=== PATIENT | female | born 1970 | race Caucasian/White ===

== ENCOUNTER 2018-09-30 10:25 | Inpatient (IN) | payer OTHER ==
[2018-09-30 11:13] VITALS: BMI 31.5
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
[2018-09-30] MEDS ORDERED: MAGNESIUM CITRATE 300 ML BOTTLE PO PRN (12:54)
[2018-09-30] MEDS ORDERED: BISMUTH SUBSALICYLATE 262 MG/15 ML BTL PO PRN (12:54)
[2018-09-30] MEDS ORDERED: MAGNESIUM HYDROX 2400MG/30ML ORAL SUSPENSION 30 ML CUP PO PRN (12:54)
[2018-09-30] MEDS ORDERED: ACETAMINOPHEN 325 MG TABLET (FP) PO PRN ×2 (12:54)
[2018-09-30] MEDS ORDERED: MAG HYDROX/AL HYDROX/SIMETH 30 ML UNIT-DOSE CUP PO PRN (12:54)
[2018-09-30] MEDS ORDERED: MENTHOL/PHENOL 1 EACH UD MM PRN (12:54)
[2018-09-30] MEDS ORDERED: METHADONE HCL 10 MG TABLET (FOR DETOX USE ONLY) PO ONE (12:56)
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
[2018-09-30] MEDS: QUEtiapine FUMARATE 100 MG TABLET (FP) PO SCH (22:43)
[2018-09-30] MEDS: THIAMINE HCL 100 MG TABLET (FP) PO SCH (22:44)
[2018-09-30] MEDS: hydrOXYzine PAMOATE 25 MG CAPSULE (FP) PO PRN (22:44)
[2018-10-01] MEDS ORDERED: METHADONE HCL 10 MG TABLET (FOR DETOX USE ONLY) PO ONE (10:00)
[2018-10-01] MEDS: QUEtiapine FUMARATE 50 MG TABLET PO SCH (10:12)
[2018-10-01] MEDS: PRENATAL VITAMINS W/ FOLIC ACID TABLET (FP) PO SCH (10:12)
[2018-10-01 10:52] LABS: ALBUMIN 3.3 g/dl (3.4-5.0); BILIRUBIN,TOTAL 0.4 mg/dL (0.2-1); CALCIUM 8.9 mg/dL (8.5-10.1); CREATININE 0.8 mg/dL (0.55-1.3); POTASSIUM 4.3 mmol/L (3.5-5.1); TOT PROT 6.2 g/dl (6.4-8.2)
[2018-10-01 10:54] LABS: HEMATOCRIT 33.2 % (32.4-45.2); HEMOGLOBIN 11.2 GM/dL (10.7-15.3); MCH 30.7 pg (25.7-33.7); MCHC 33.7 g/dl (32.0-36.0); MEAN CELL VOLUME 91.3 fl (80-96); MEAN PLT VOLUME 8.7 fl (7.5-11.1); PLATELET COUNT 284 K/MM3 (134-434); RBC 3.63 M/mm3 (3.60-5.2); RDW 13.6 % (11.6-15.6); WHITE BLOOD COUNT 6.5 K/mm3 (4.0-10.0)
[2018-10-01] MEDS ORDERED: PNEUMOC 13-VAL CONJ-DIP CRM/PF 0.5 ML DISP.SYRIN IM ONE (12:00)
[2018-10-01] MEDS ORDERED: PNEUMOCOCCAL 23 VACCINE 0.5 ML VIAL IM ONE (12:00)
--- NOTE | 2018-10-01 12:26 | PN ---
BHS COWS - Scale Resting Pulse: 0= [place] 80 or Below Sweatin=Flushed/Facial Moisture Restless Observation: 1= Difficult to Sit Still Pupil Size: 0= Normal to Room Light Bone or Joint Aches: 2= Severe Diffuse Aches Runny Nose/ Eye Tearin= Nasal Congestion GI Upset > 30mins: 1= Stomach Cramp Tremor Observation of Outstretched Hands: 2= Slight Tremor Visible Yawning Observation: 2= >3x During Session Anxiety or Irritability: 2=Irritable/Anxious Goose Flesh Skin: 0=Smooth Skin COWS Score: 13 BHS Progress Note (SOAP) Subjective: agitation anxiety sweats body aches Objective: 10/01/18 12:25 Vital Signs Temperature 97.9 F 10/01/18 10:35 Pulse Rate 69 10/01/18 10:35 Respiratory Rate 18 10/01/18 10:35 Blood Pressure 106/61 10/01/18 10:35 O2 Sat by Pulse Oximetry (%) Laboratory Tests 09/30/18 10/01/18 10/01/18 12:21 07:00 07:00 WBC 6.5 RBC 3.63 Hgb 11.2 Hct 33.2 MCV 91.3 MCH 30.7 MCHC 33.7 RDW 13.6 Plt Count 284 MPV 8.7 Sodium 144 Potassium 4.3 Chloride 109 H Carbon Dioxide 30 Anion Gap 5 L BUN 9 Creatinine 0.8 Est GFR (CKD-EPI)AfAm 101.04 Est GFR (CKD-EPI)NonAf 87.18 Random Glucose 91 Calcium 8.9 Total Bilirubin 0.4 AST 16 ALT 27 Alkaline Phosphatase 49 Total Protein 6.2 L Albumin 3.3 L POC Urine HCG, Qual Negative labs noted aaox3 ambulating no acute distress Assessment: 10/01/18 12:25 withdrawal sx Plan: continue detox increase fluids
--- NOTE | 2018-10-01 13:11 | EKG ---
Test Reason : Blood Pressure : / mmHG Vent. Rate : 066 BPM Atrial Rate : 066 BPM P-R Int : 148 ms QRS Dur : 092 ms QT Int : 390 ms P-R-T Axes : 056 027 037 degrees QTc Int : 408 ms NORMAL SINUS RHYTHM NORMAL ECG NO PREVIOUS ECGS AVAILABLE Confirmed by LYNNE DE LEÓN MD ([id number]) on 10/01/2018 1:11:33 PM Referred By: Confirmed By:LYNNE DE LEÓN MD
[2018-10-01] MEDS: hydrOXYzine PAMOATE 25 MG CAPSULE (FP) PO PRN (20:35)
[2018-10-01] MEDS: QUEtiapine FUMARATE 100 MG TABLET (FP) PO SCH (22:27)
[2018-10-01] MEDS: THIAMINE HCL 100 MG TABLET (FP) PO SCH (22:27)
[2018-10-01] MEDS: METHOCARBAMOL 500 MG TABLET PO PRN (22:28)
[2018-10-01] MEDS: MELATONIN 5 MG TABLETS PO PRN (22:28)
[2018-10-02] MEDS: cloNIDine HCL 0.1 MG TABLET PO PRN ×3 (05:23→18:17)
[2018-10-02] MEDS: hydrOXYzine PAMOATE 25 MG CAPSULE (FP) PO PRN ×3 (05:23→22:13)
[2018-10-02] MEDS: METHOCARBAMOL 500 MG TABLET PO PRN ×3 (05:50→22:14)
[2018-10-02] MEDS ORDERED: METHADONE HCL 10 MG TABLET (FOR DETOX USE ONLY) PO ONE (10:00)
[2018-10-02] MEDS: PRENATAL VITAMINS W/ FOLIC ACID TABLET (FP) PO SCH (10:26)
[2018-10-02] MEDS: QUEtiapine FUMARATE 50 MG TABLET PO SCH (10:27)
[2018-10-02] MEDS: NICOTINE 21 MG/24 HOURS TOPICAL PATCH TD SCH (11:52)
--- NOTE | 2018-10-02 12:38 | PN ---
S COWS - Scale Resting Pulse: 0= [place] 80 or Below Sweatin= Chills/Flushing Restless Observation: 1= Difficult to Sit Still Pupil Size: 0= Normal to Room Light Bone or Joint Aches: 4=Acute Joint/Muscle Pain Runny Nose/ Eye Tearin= None GI Upset > 30mins: 0= None Tremor Observation of Outstretched Hands: 2= Slight Tremor Visible Yawning Observation: 1= 1-2x During Session Anxiety or Irritability: 2=Irritable/Anxious Goose Flesh Skin: 0=Smooth Skin COWS Score: 11 S Progress Note (SOAP) Subjective: c/o anxiety/irritability, tremors, chills, and interrupted sleep. Objective: 10/02/18 12:37 Vital Signs 10/02/18 10/02/18 06:00 09:22 Temperature 98.1 F 98.3 F Pulse Rate 81 79 Respiratory 18 18 Rate Blood Pressure 127/71 125/72 Lab Results WBC 6.5 K/mm3 (4.0-10.0) 10/01/18 07:00 RBC 3.63 M/mm3 (3.60-5.2) 10/01/18 07:00 Hgb 11.2 GM/dL (10.7-15.3) 10/01/18 07:00 Hct 33.2 % (32.4-45.2) 10/01/18 07:00 MCV 91.3 fl (80-96) 10/01/18 07:00 MCHC 33.7 g/dl (32.0-36.0) 10/01/18 07:00 RDW 13.6 % (11.6-15.6) 10/01/18 07:00 Plt Count 284 K/MM3 (134-434) 10/01/18 07:00 Sodium 144 mmol/L (136-145) 10/01/18 07:00 Potassium 4.3 mmol/L (3.5-5.1) 10/01/18 07:00 Chloride 109 mmol/L (98-107) H 10/01/18 07:00 Carbon Dioxide 30 mmol/L (21-32) 10/01/18 07:00 Anion Gap 5 MMOL/L (8-16) L 10/01/18 07:00 BUN 9 mg/dL (7-18) 10/01/18 07:00 Creatinine 0.8 mg/dL (0.55-1.3) 10/01/18 07:00 Random Glucose 91 mg/dL (74-106) 10/01/18 07:00 Calcium 8.9 mg/dL (8.5-10.1) 10/01/18 07:00 Labs noted. Assessment: 10/02/18 12:37 AOX3, in no acute distress. full rom, ambulating in the unit withdrawal symptoms. Plan: Continue detox increase fluids.
[2018-10-02] MEDS: IBUPROFEN 400 MG TABLET (FP) PO PRN (14:03)
[2018-10-02] MEDS: THIAMINE HCL 100 MG TABLET (FP) PO SCH (22:13)
[2018-10-02] MEDS: QUEtiapine FUMARATE 100 MG TABLET (FP) PO SCH (22:13)
[2018-10-02] MEDS: NICOTINE POLACRILEX 2 MG GUM BUC PRN (22:24)
[2018-10-03] MEDS: MELATONIN 5 MG TABLETS PO PRN (01:16)
[2018-10-03] MEDS ORDERED: hydrOXYzine PAMOATE 50 MG CAPSULE (FP) PO ONE (02:09)
[2018-10-03] MEDS: hydrOXYzine PAMOATE 25 MG CAPSULE (FP) PO PRN ×3 (06:27→17:58)
[2018-10-03] MEDS: IBUPROFEN 400 MG TABLET (FP) PO PRN ×2 (08:53→17:59)
[2018-10-03] MEDS ORDERED: METHADONE HCL 10 MG TABLET (FOR DETOX USE ONLY) PO ONE (10:00)
[2018-10-03] MEDS ORDERED: ALBUTEROL SO4 8 GM HFA INHALER IH PRN (10:05)
[2018-10-03] MEDS: QUEtiapine FUMARATE 50 MG TABLET PO SCH (10:06)
[2018-10-03] MEDS: PRENATAL VITAMINS W/ FOLIC ACID TABLET (FP) PO SCH (10:06)
[2018-10-03] MEDS: NICOTINE 21 MG/24 HOURS TOPICAL PATCH TD SCH (10:06)
[2018-10-03] MEDS: NICOTINE POLACRILEX 2 MG GUM BUC PRN (10:08)
[2018-10-03] MEDS: METHOCARBAMOL 500 MG TABLET PO PRN ×2 (10:37→17:59)
--- NOTE | 2018-10-03 11:09 | PN ---
[facility] Progress Note Note: Patient reports sleeping poorly despite taking Seroquel 100 mg at bedtime. Requests to increase Seroquel dosage to 200 mg which she was on prior to her current admission
[2018-10-03] MEDS: LIDOCAINE 5% TOPICAL PATCH TP SCH (11:19)
[2018-10-03] MEDS ORDERED: METHADONE HCL 5 MG TABLET (FOR DETOX USE ONLY) PO ONE (17:15)
--- NOTE | 2018-10-03 17:15 | PN ---
BHS COWS - Scale Resting Pulse: 0= OR 80 or Below Sweatin= Chills/Flushing Restless Observation: 3= Extraneous Movement Pupil Size: 0= Normal to Room Light Bone or Joint Aches: 2= Severe Diffuse Aches Runny Nose/ Eye Tearin= Runny Nose/Eyes GI Upset > 30mins: 2= Nausea/Diarrhea Tremor Observation of Outstretched Hands: 2= Slight Tremor Visible Yawning Observation: 0= None Anxiety or Irritability: 2=Irritable/Anxious Goose Flesh Skin: 0=Smooth Skin COWS Score: 14 BHS Progress Note (SOAP) Subjective: Goose bumps, sweating, chills, anxious, body ache. Patient requested to have hydroxyzine increase as she is very anxious. Objective: 10/03/18 17:11 Last Vital Signs Temp Pulse Resp BP Pulse Ox 99.3 F 73 18 103/64 10/03/18 17:10 10/03/18 17:10 10/03/18 17:10 10/03/18 17:10 Laboratory Tests 09/30/18 10/01/18 10/01/18 12:21 07:00 07:00 WBC 6.5 RBC 3.63 Hgb 11.2 Hct 33.2 MCV 91.3 MCH 30.7 MCHC 33.7 RDW 13.6 Plt Count 284 MPV 8.7 Sodium 144 Potassium 4.3 Chloride 109 H Carbon Dioxide 30 Anion Gap 5 L BUN 9 Creatinine 0.8 Est GFR (CKD-EPI)AfAm 101.04 Est GFR (CKD-EPI)NonAf 87.18 Random Glucose 91 Calcium 8.9 Total Bilirubin 0.4 AST 16 ALT 27 Alkaline Phosphatase 49 Total Protein 6.2 L Albumin 3.3 L POC Urine HCG, Qual Negative RPR Titer HIV 1&2 Antibody Screen HIV P24 Antigen 10/01/18 10/01/18 07:00 07:00 WBC RBC Hgb Hct MCV MCH MCHC RDW Plt Count MPV Sodium Potassium Chloride Carbon Dioxide Anion Gap BUN Creatinine Est GFR (CKD-EPI)AfAm Est GFR (CKD-EPI)NonAf Random Glucose Calcium Total Bilirubin AST ALT Alkaline Phosphatase Total Protein Albumin POC Urine HCG, Qual RPR Titer Nonreactive HIV 1&2 Antibody Screen Negative HIV P24 Antigen Negative Labs reviewed Assessment: 10/03/18 17:12 Withdrawal symptoms Plan: Continue detox Encouraged PO water hydration Hydroxyzine increased to 50mg PO q6hr prn (patient's request) Methadone adjusted due to increased withdrawal symptoms as follows: Methadone 5mg PO x 1 dose for total of 15mg today Methadone 10mg tomorrow and 5mg on Thursday
[2018-10-03] MEDS: QUEtiapine FUMARATE 200 MG TABLET PO SCH (22:35)
[2018-10-03] MEDS: THIAMINE HCL 100 MG TABLET (FP) PO SCH (22:35)
[2018-10-03] MEDS: LIDOCAINE PATCH REMOVAL MC SCH (22:36)
[2018-10-04] MEDS: IBUPROFEN 400 MG TABLET (FP) PO PRN ×2 (00:01→22:12)
[2018-10-04] MEDS: METHOCARBAMOL 500 MG TABLET PO PRN ×4 (00:01→18:32)
[2018-10-04] MEDS: hydrOXYzine PAMOATE 25 MG CAPSULE (FP) PO PRN ×4 (00:03→18:32)
[2018-10-04] MEDS: MELATONIN 5 MG TABLETS PO PRN ×2 (02:44→22:14)
[2018-10-04] MEDS ORDERED: METHADONE HCL 10 MG TABLET (FOR DETOX USE ONLY) PO ONE (06:00)
[2018-10-04] MEDS ORDERED: METHADONE HCL 5 MG TABLET (FOR DETOX USE ONLY) PO ONE (06:00)
[2018-10-04] MEDS: diazePAM 5 MG TABLET PO PRN ×4 (09:04→21:08)
[2018-10-04] MEDS: NICOTINE 21 MG/24 HOURS TOPICAL PATCH TD SCH (10:23)
[2018-10-04] MEDS: LIDOCAINE 5% TOPICAL PATCH TP SCH (10:23)
[2018-10-04] MEDS: QUEtiapine FUMARATE 50 MG TABLET PO SCH (10:24)
[2018-10-04] MEDS: PRENATAL VITAMINS W/ FOLIC ACID TABLET (FP) PO SCH (10:24)
--- NOTE | 2018-10-04 10:43 | PN ---
BHS COWS - Scale Resting Pulse: 1= [place] 81-100 Sweatin= Chills/Flushing Restless Observation: 1= Difficult to Sit Still Pupil Size: 0= Normal to Room Light Bone or Joint Aches: 1= Mild Discomfort Runny Nose/ Eye Tearin= None GI Upset > 30mins: 0= None Tremor Observation of Outstretched Hands: 1= Tremor [place], Not Seen Yawning Observation: 0= None Anxiety or Irritability: 2=Irritable/Anxious Goose Flesh Skin: 0=Smooth Skin COWS Score: 7 BHS Progress Note (SOAP) Subjective: anxiety sweats irritable Objective: 10/04/18 10:41 Vital Signs Temperature 97.9 F 10/04/18 09:19 Pulse Rate 82 10/04/18 09:19 Respiratory Rate 18 10/04/18 09:19 Blood Pressure 104/72 10/04/18 09:19 O2 Sat by Pulse Oximetry (%) aaox3 ambulating no acute distress Assessment: 10/04/18 10:42 withdrawal sx Plan: continue detox valium 10mg prn until tomorrow.
[2018-10-04] MEDS: QUEtiapine FUMARATE 200 MG TABLET PO SCH (22:11)
[2018-10-04] MEDS: LIDOCAINE PATCH REMOVAL MC SCH (22:14)
[2018-10-04] MEDS: THIAMINE HCL 100 MG TABLET (FP) PO SCH (22:14)
[2018-10-05] MEDS: hydrOXYzine PAMOATE 25 MG CAPSULE (FP) PO PRN ×2 (00:56→09:47)
[2018-10-05] MEDS: METHOCARBAMOL 500 MG TABLET PO PRN (00:56)
[2018-10-05] MEDS: diazePAM 5 MG TABLET PO PRN ×2 (01:32→06:04)
[2018-10-05] MEDS: NICOTINE POLACRILEX 2 MG GUM BUC PRN (01:36)
[2018-10-05] MEDS ORDERED: METHADONE HCL 5 MG TABLET (FOR DETOX USE ONLY) PO ONE (06:00)
--- NOTE | 2018-10-05 09:20 | DS ---
[facility] Detox Discharge Summary Admission Date: 09/30/18 Discharge Date: 10/05/18 - History Present History: Cannabis Dependence, Cocaine Dependence, Opioid Dependence, Sedative Dependence - Physical Exam Results Vital Signs: Vital Signs Temperature 96.6 F L 10/05/18 07:21 Pulse Rate 85 10/05/18 07:21 Respiratory Rate 18 10/05/18 07:21 Blood Pressure 139/79 10/05/18 07:21 O2 Sat by Pulse Oximetry (%) - Treatment Hospital Course: Detox Protocol Followed, Detoxed Safely, Responded well, Discharged Condition Good, Rehab Referral Accepted - Medication Discharge Medications: Ambulatory Orders Bupropion HCl 100 mg PO TID 09/30/18 Quetiapine Fumarate [Seroquel -] 50 mg PO BID 09/30/18 Quetiapine Fumarate [Seroquel -] 200 mg PO HS 09/30/18 hydrOXYzine PAMOATE [Vistaril -] 50 mg PO TID 09/30/18 - Diagnosis (1) Opioid dependence with withdrawal Current Visit: Yes Status: Chronic (2) Sedative hypnotic or anxiolytic dependence Current Visit: Yes Status: Chronic (3) Cannabis dependence Current Visit: Yes Status: Chronic (4) Cocaine dependence Current Visit: Yes Status: Chronic Qualifiers: Substance use status: uncomplicated Qualified Code(s): F14.20 - Cocaine dependence, uncomplicated (5) Nicotine dependence Current Visit: Yes Status: Chronic Qualifiers: Nicotine product type: cigarettes Substance use status: uncomplicated Qualified Code(s): F17.210 - Nicotine dependence, cigarettes, uncomplicated (6) Drug-induced psychotic disorder with hallucinations Current Visit: No Status: Suspected - AMA Did Patient Leave Against Medical Advice: No (referred to [facility])
[2018-10-05 09:39] VITALS: BP 115/69; PULSE 93; TEMP 98.1
[2018-10-05] MEDS: PRENATAL VITAMINS W/ FOLIC ACID TABLET (FP) PO SCH (09:44)
[2018-10-05] MEDS: QUEtiapine FUMARATE 50 MG TABLET PO SCH (09:44)
--- NOTE | 2018-10-05 10:04 | PN ---
[facility] Progress Note Note: Patient is scheduled for discharge today. Scripts for 30 days supply of medications(Seroquel 50 mg/day & 200 mg/hs, Wellbutrin XL 150 mg.day) are electronically transmitted to [facility] at [address] [place] [address]
== END 2018-10-05 10:40 | disposition home or self-care (01) | DRG 773 ==
LOC: YASAS 10:25 → Y6N 13:21
PROVIDERS: ADMIT Surgery; ATTEND Surgery
PROC: HZ2ZZZZ Detoxification Services for Substance Abuse Treatment (ICD-10-PCS; principal; 2018-09-30)
DX: F11.23 Opioid dependence with withdrawal (principal); F13.20 Sedative, hypnotic or anxiolytic dependence, uncomplicated; F14.20 Cocaine dependence, uncomplicated; F12.20 Cannabis dependence, uncomplicated; F17.210 Nicotine dependence, cigarettes, uncomplicated; F19.951 Other psychoactive substance use, unspecified with psychoactive substance-induced psychotic disorder with hallucinations
CPT/HCPCS: 36415; 80053; 81025; 85027; 86593; 87389; 90732; 93005; 93010; G0009; J0735

== ENCOUNTER 2019-02-09 13:05 | Inpatient (IN) | payer OTHER ==
[2019-02-09 14:37] VITALS: BMI 29.9
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
[2019-02-09] MEDS ORDERED: MAG HYDROX/AL HYDROX/SIMETH 30 ML UNIT-DOSE CUP PO PRN (16:05)
[2019-02-09] MEDS ORDERED: MAGNESIUM CITRATE 300 ML BOTTLE PO PRN (16:05)
[2019-02-09] MEDS ORDERED: ACETAMINOPHEN 325 MG TABLET (FP) PO PRN ×2 (16:05)
[2019-02-09] MEDS ORDERED: BISMUTH SUBSALICYLATE 524 MG/30 ML UD PO PRN (16:05)
[2019-02-09] MEDS ORDERED: MENTHOL/PHENOL 1 EACH UD MM PRN (16:05)
[2019-02-09] MEDS ORDERED: MAGNESIUM HYDROX 2400MG/30ML ORAL SUSPENSION 30 ML CUP PO PRN (16:05)
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
[2019-02-09] MEDS ORDERED: AMMONIUM LACTATE 12% LOTION 225 GM BOTTLE TP PRN (16:10)
[2019-02-09] MEDS ORDERED: ALBUTEROL SO4 2.5/IPRATROPIUM 0.5 INH SOL 3 ML VIAL.NEB. NEB PRN (16:12)
[2019-02-09] MEDS ORDERED: METHADONE HCL 10 MG TABLET (FOR DETOX USE ONLY) PO ONE (16:30)
[2019-02-09] MEDS: hydrOXYzine PAMOATE 25 MG CAPSULE (FP) PO PRN (17:08)
[2019-02-09] MEDS: THIAMINE HCL 100 MG TABLET (FP) PO SCH (21:33)
[2019-02-09] MEDS: CROMOLYN SODIUM 4% OPHTH DROPS 10 ML BOTTLE OD SCH (21:33)
[2019-02-09] MEDS: METHOCARBAMOL 500 MG TABLET PO PRN (21:34)
[2019-02-09] MEDS ORDERED: MELATONIN 5 MG TABLETS PO PRN (22:00)
[2019-02-10] MEDS: METHOCARBAMOL 500 MG TABLET PO PRN (04:04)
[2019-02-10] MEDS: hydrOXYzine PAMOATE 25 MG CAPSULE (FP) PO PRN (04:04)
[2019-02-10] MEDS: CROMOLYN SODIUM 4% OPHTH DROPS 10 ML BOTTLE OD SCH ×3 (07:46→22:42)
[2019-02-10] MEDS ORDERED: METHADONE HCL 5 MG TABLET (FOR DETOX USE ONLY) ONE (09:15)
[2019-02-10] MEDS ORDERED: METHADONE HCL 10 MG TABLET (FOR DETOX USE ONLY) ONE (09:15)
[2019-02-10] MEDS ORDERED: METHADONE (DETOX) 20 MG, METHADONE (DETOX) 5 MG PO ONE (10:00)
[2019-02-10 10:15] LABS: HEMATOCRIT 33.7 % (32.4-45.2); HEMOGLOBIN 11.1 GM/dL (10.7-15.3); MCH 29.8 pg (25.7-33.7); MCHC 32.8 g/dl (32.0-36.0); MEAN CELL VOLUME 90.8 fl (80-96); MEAN PLT VOLUME 9.8 fl (7.5-11.1); PLATELET COUNT 211 K/MM3 (134-434); RBC 3.71 M/mm3 (3.60-5.2); RDW 14.9 % (11.6-15.6); WHITE BLOOD COUNT 5.8 K/mm3 (4.0-10.0)
[2019-02-10] MEDS: NICOTINE 21 MG/24 HOURS TOPICAL PATCH TD SCH (10:22)
[2019-02-10] MEDS: PRENATAL VITAMINS W/ FOLIC ACID TABLET (FP) PO SCH (10:22)
[2019-02-10 10:35] LABS: ALBUMIN 3.1 g/dl (3.4-5.0); BILIRUBIN,TOTAL 0.2 mg/dL (0.2-1); BLOOD UREA NITROGEN 8.1 mg/dL (7-18); CALCIUM 8.6 mg/dL (8.5-10.1); CREATININE 0.7 mg/dL (0.55-1.3); POTASSIUM 4.1 mmol/L (3.5-5.1); TOT PROT 5.9 g/dl (6.4-8.2)
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
[2019-02-10 11:09] LABS: RPR NONREACTIVE (NONREACTIVE)
[2019-02-10] MEDS: SERTRALINE HCL 50 MG TABLET (FP) PO SCH (11:39)
[2019-02-10] MEDS: hydrOXYzine PAMOATE 50 MG CAPSULE (FP) PO PRN ×3 (11:40→22:14)
--- NOTE | 2019-02-10 13:35 | PN ---
BHS COWS - Scale Resting Pulse: 0= [place] 80 or Below Sweatin= Chills/Flushing Restless Observation: 1= Difficult to Sit Still Pupil Size: 0= Normal to Room Light Bone or Joint Aches: 2= Severe Diffuse Aches Runny Nose/ Eye Tearin= Nasal Congestion GI Upset > 30mins: 0= None Tremor Observation of Outstretched Hands: 2= Slight Tremor Visible Yawning Observation: 2= >3x During Session Anxiety or Irritability: 2=Irritable/Anxious Goose Flesh Skin: 3=Piloerection COWS Score: 14 BHS Progress Note (SOAP) Subjective: chills sweats interrupted sleep body aches agitation Objective: 02/10/19 13:34 Vital Signs Temperature 98.1 F 02/10/19 12:46 Pulse Rate 72 02/10/19 12:46 Respiratory Rate 20 02/10/19 12:46 Blood Pressure 139/77 02/10/19 12:46 O2 Sat by Pulse Oximetry (%) Laboratory Tests 02/10/19 02/10/19 02/10/19 08:10 08:10 08:10 WBC 5.8 RBC 3.71 Hgb 11.1 Hct 33.7 MCV 90.8 MCH 29.8 MCHC 32.8 RDW 14.9 Plt Count 211 D MPV 9.8 D Sodium 142 Potassium 4.1 Chloride 107 Carbon Dioxide 30 Anion Gap 5 L BUN 8.1 Creatinine 0.7 Est GFR (CKD-EPI)AfAm 118.74 Est GFR (CKD-EPI)NonAf 102.45 Random Glucose 86 Calcium 8.6 Total Bilirubin 0.2 AST 7 L ALT 15 Alkaline Phosphatase 54 Total Protein 5.9 L Albumin 3.1 L RPR Titer Nonreactive HIV 1&2 Antibody Screen Negative HIV P24 Antigen Negative labs noted aaox3 ambulating no acute distress Assessment: 02/10/19 13:34 withdrawals Plan: continue detox valium 10mg q4hrs prn x 3 days ordered increase fluids
[2019-02-10] MEDS: diazePAM 5 MG TABLET PO PRN ×3 (14:49→23:18)
[2019-02-10] MEDS: cloNIDine HCL 0.1 MG TABLET PO PRN (14:51)
[2019-02-10] MEDS: ARIPiprazole 10 MG TABLET PO SCH (22:10)
[2019-02-10] MEDS: SUVOREXANT 10 MG TABLET PO PRN (22:11)
[2019-02-10] MEDS: THIAMINE HCL 100 MG TABLET (FP) PO SCH (22:11)
[2019-02-10] MEDS: IBUPROFEN 400 MG TABLET (FP) PO PRN (22:14)
[2019-02-11] MEDS: METHOCARBAMOL 500 MG TABLET PO PRN ×2 (06:12→17:04)
[2019-02-11] MEDS: diazePAM 5 MG TABLET PO PRN ×4 (06:12→22:17)
[2019-02-11] MEDS: hydrOXYzine PAMOATE 50 MG CAPSULE (FP) PO PRN ×2 (06:13→22:14)
[2019-02-11] MEDS: CROMOLYN SODIUM 4% OPHTH DROPS 10 ML BOTTLE OD SCH ×3 (06:17→22:28)
[2019-02-11] MEDS ORDERED: METHADONE HCL 10 MG TABLET (FOR DETOX USE ONLY) PO ONE (10:00)
[2019-02-11] MEDS: NICOTINE 21 MG/24 HOURS TOPICAL PATCH TD SCH (10:54)
[2019-02-11] MEDS: SERTRALINE HCL 50 MG TABLET (FP) PO SCH (10:54)
[2019-02-11] MEDS: PRENATAL VITAMINS W/ FOLIC ACID TABLET (FP) PO SCH (10:54)
[2019-02-11] MEDS: cloNIDine HCL 0.1 MG TABLET PO PRN (10:54)
[2019-02-11] MEDS ORDERED: COLLOIDAL OATMEAL 1 BAR EACH TP ONE (13:39)
--- NOTE | 2019-02-11 13:39 | PN ---
BHS COWS - Scale Resting Pulse: 1= [place] 81-100 Sweatin= Chills/Flushing Restless Observation: 1= Difficult to Sit Still Pupil Size: 0= Normal to Room Light Bone or Joint Aches: 2= Severe Diffuse Aches Runny Nose/ Eye Tearin= Nasal Congestion GI Upset > 30mins: 0= None Tremor Observation of Outstretched Hands: 2= Slight Tremor Visible Yawning Observation: 1= 1-2x During Session Anxiety or Irritability: 1=Feels Anxious/Irritable Goose Flesh Skin: 0=Smooth Skin COWS Score: 10 BHS Progress Note (SOAP) Subjective: sweats shakes rash on my back anxiety Objective: 02/11/19 13:38 Vital Signs Temperature 97.9 F 02/11/19 13:18 Pulse Rate 104 H 02/11/19 13:18 Respiratory Rate 18 02/11/19 13:18 Blood Pressure 143/71 02/11/19 13:18 O2 Sat by Pulse Oximetry (%) Laboratory Tests 02/10/19 02/10/19 02/10/19 08:10 08:10 08:10 WBC 5.8 RBC 3.71 Hgb 11.1 Hct 33.7 MCV 90.8 MCH 29.8 MCHC 32.8 RDW 14.9 Plt Count 211 D MPV 9.8 D Sodium 142 Potassium 4.1 Chloride 107 Carbon Dioxide 30 Anion Gap 5 L BUN 8.1 Creatinine 0.7 Est GFR (CKD-EPI)AfAm 118.74 Est GFR (CKD-EPI)NonAf 102.45 Random Glucose 86 Calcium 8.6 Total Bilirubin 0.2 AST 7 L ALT 15 Alkaline Phosphatase 54 Total Protein 5.9 L Albumin 3.1 L RPR Titer Nonreactive Hep C Ab Diagnostic HIV 1&2 Antibody Screen Negative HIV P24 Antigen Negative 02/10/19 08:10 WBC RBC Hgb Hct MCV MCH MCHC RDW Plt Count MPV Sodium Potassium Chloride Carbon Dioxide Anion Gap BUN Creatinine Est GFR (CKD-EPI)AfAm Est GFR (CKD-EPI)NonAf Random Glucose Calcium Total Bilirubin AST ALT Alkaline Phosphatase Total Protein Albumin RPR Titer Hep C Ab Diagnostic 0.3 HIV 1&2 Antibody Screen HIV P24 Antigen labs noted aaox3 ambulating no acute distress Assessment: 02/11/19 13:39 withdrawal sx Plan: continue detox increase fluids aveeno soap hydrocortizone cream
[2019-02-11] MEDS: HYDROCORTISONE 1% TOPICAL CREAM 30 GM TUBE TP SCH ×2 (14:42→22:27)
[2019-02-11] MEDS: SUVOREXANT 10 MG TABLET PO PRN (22:14)
[2019-02-11] MEDS: ARIPiprazole 10 MG TABLET PO SCH (22:14)
[2019-02-11] MEDS: THIAMINE HCL 100 MG TABLET (FP) PO SCH (22:14)
[2019-02-12] MEDS: diazePAM 5 MG TABLET PO PRN ×4 (02:28→21:46)
[2019-02-12] MEDS: hydrOXYzine PAMOATE 50 MG CAPSULE (FP) PO PRN ×3 (05:48→16:30)
[2019-02-12] MEDS: METHOCARBAMOL 500 MG TABLET PO PRN ×3 (05:48→21:48)
[2019-02-12] MEDS: CROMOLYN SODIUM 4% OPHTH DROPS 10 ML BOTTLE OD SCH ×3 (05:49→22:39)
[2019-02-12] MEDS: HYDROCORTISONE 1% TOPICAL CREAM 30 GM TUBE TP SCH ×3 (05:49→22:39)
[2019-02-12] MEDS ORDERED: METHADONE (DETOX) 10 MG, METHADONE (DETOX) 5 MG PO ONE (10:00)
[2019-02-12] MEDS ORDERED: METHADONE HCL 10 MG TABLET (FOR DETOX USE ONLY) ONE (10:41)
[2019-02-12] MEDS ORDERED: METHADONE HCL 5 MG TABLET (FOR DETOX USE ONLY) ONE (10:41)
[2019-02-12] MEDS: PRENATAL VITAMINS W/ FOLIC ACID TABLET (FP) PO SCH (10:49)
[2019-02-12] MEDS: NICOTINE 21 MG/24 HOURS TOPICAL PATCH TD SCH (10:49)
[2019-02-12] MEDS: SERTRALINE HCL 50 MG TABLET (FP) PO SCH (10:50)
[2019-02-12] MEDS ORDERED: cloNIDine HCL 0.1 MG TABLET PO PRN (11:48)
--- NOTE | 2019-02-12 13:30 | PN ---
BHS COWS - Scale Resting Pulse: 1= [place] 81-100 Sweatin= Chills/Flushing Restless Observation: 1= Difficult to Sit Still Pupil Size: 0= Normal to Room Light Bone or Joint Aches: 2= Severe Diffuse Aches Runny Nose/ Eye Tearin= None GI Upset > 30mins: 0= None Tremor Observation of Outstretched Hands: 1= Tremor [place], Not Seen Yawning Observation: 1= 1-2x During Session Anxiety or Irritability: 1=Feels Anxious/Irritable Goose Flesh Skin: 0=Smooth Skin COWS Score: 8 BHS Progress Note (SOAP) Subjective: anxiety sweats interrupted sleep body aches Objective: 02/12/19 13:29 Vital Signs Temperature 97.1 F L 02/12/19 09:27 Pulse Rate 58 L 02/12/19 09:27 Respiratory Rate 16 02/12/19 09:27 Blood Pressure 113/64 02/12/19 09:27 O2 Sat by Pulse Oximetry (%) Laboratory Tests 02/10/19 02/10/19 02/10/19 08:10 08:10 08:10 WBC 5.8 RBC 3.71 Hgb 11.1 Hct 33.7 MCV 90.8 MCH 29.8 MCHC 32.8 RDW 14.9 Plt Count 211 D MPV 9.8 D Sodium 142 Potassium 4.1 Chloride 107 Carbon Dioxide 30 Anion Gap 5 L BUN 8.1 Creatinine 0.7 Est GFR (CKD-EPI)AfAm 118.74 Est GFR (CKD-EPI)NonAf 102.45 Random Glucose 86 Calcium 8.6 Total Bilirubin 0.2 AST 7 L ALT 15 Alkaline Phosphatase 54 Total Protein 5.9 L Albumin 3.1 L RPR Titer Nonreactive Hep C Ab Diagnostic HIV 1&2 Antibody Screen Negative HIV P24 Antigen Negative 02/10/19 08:10 WBC RBC Hgb Hct MCV MCH MCHC RDW Plt Count MPV Sodium Potassium Chloride Carbon Dioxide Anion Gap BUN Creatinine Est GFR (CKD-EPI)AfAm Est GFR (CKD-EPI)NonAf Random Glucose Calcium Total Bilirubin AST ALT Alkaline Phosphatase Total Protein Albumin RPR Titer Hep C Ab Diagnostic 0.3 HIV 1&2 Antibody Screen HIV P24 Antigen aaox3 ambulating no acute distress Assessment: 02/12/19 13:30 withdrawal sx Plan: continue detox clonidine 0.1 mg daily prn re-ordered with parameters
[2019-02-12] MEDS: THIAMINE HCL 100 MG TABLET (FP) PO SCH (21:43)
[2019-02-12] MEDS: SUVOREXANT 10 MG TABLET PO PRN (21:43)
[2019-02-12] MEDS: ARIPiprazole 10 MG TABLET PO SCH (21:44)
[2019-02-13] MEDS: diazePAM 5 MG TABLET PO PRN (03:25)
[2019-02-13] MEDS: IBUPROFEN 400 MG TABLET (FP) PO PRN (03:28)
[2019-02-13] MEDS: CROMOLYN SODIUM 4% OPHTH DROPS 10 ML BOTTLE OD SCH ×2 (06:39→14:24)
[2019-02-13] MEDS: HYDROCORTISONE 1% TOPICAL CREAM 30 GM TUBE TP SCH ×2 (06:40→14:24)
[2019-02-13] MEDS: hydrOXYzine PAMOATE 50 MG CAPSULE (FP) PO PRN (06:41)
[2019-02-13] MEDS ORDERED: METHADONE HCL 10 MG TABLET (FOR DETOX USE ONLY) PO ONE (10:00)
[2019-02-13] MEDS: PRENATAL VITAMINS W/ FOLIC ACID TABLET (FP) PO SCH (10:29)
[2019-02-13] MEDS: NICOTINE 21 MG/24 HOURS TOPICAL PATCH TD SCH (10:29)
[2019-02-13] MEDS: SERTRALINE HCL 50 MG TABLET (FP) PO SCH (10:29)
[2019-02-13] MEDS: METHOCARBAMOL 500 MG TABLET PO PRN (11:15)
[2019-02-13 13:27] VITALS: BP 107/55; PULSE 76; TEMP 97.9
--- NOTE | 2019-02-13 16:45 | PN ---
BHS COWS - Scale Resting Pulse: 0= [place] 80 or Below Sweatin= No chills or Flushing Restless Observation: 0= Sits Still Pupil Size: 0= Normal to Room Light Bone or Joint Aches: 1= Mild Discomfort Runny Nose/ Eye Tearin= Runny Nose/Eyes GI Upset > 30mins: 1= Stomach Cramp Tremor Observation of Outstretched Hands: 0= None Yawning Observation: 0= None Anxiety or Irritability: 1=Feels Anxious/Irritable Goose Flesh Skin: 0=Smooth Skin COWS Score: 5 BHS Progress Note (SOAP) Subjective: Lots of anxiety, sweating, chills, tremor, interrupted sleep Objective: 02/13/19 16:42 Last Vital Signs Temp Pulse Resp BP Pulse Ox 97.9 F 76 18 107/55 L 02/13/19 13:26 02/13/19 13:26 02/13/19 13:26 02/13/19 13:26 Laboratory Tests 02/10/19 02/10/19 02/10/19 08:10 08:10 08:10 WBC 5.8 RBC 3.71 Hgb 11.1 Hct 33.7 MCV 90.8 MCH 29.8 MCHC 32.8 RDW 14.9 Plt Count 211 D MPV 9.8 D Sodium 142 Potassium 4.1 Chloride 107 Carbon Dioxide 30 Anion Gap 5 L BUN 8.1 Creatinine 0.7 Est GFR (CKD-EPI)AfAm 118.74 Est GFR (CKD-EPI)NonAf 102.45 Random Glucose 86 Calcium 8.6 Total Bilirubin 0.2 AST 7 L ALT 15 Alkaline Phosphatase 54 Total Protein 5.9 L Albumin 3.1 L RPR Titer Nonreactive Hep C Ab Diagnostic HIV 1&2 Antibody Screen Negative HIV P24 Antigen Negative 02/10/19 08:10 WBC RBC Hgb Hct MCV MCH MCHC RDW Plt Count MPV Sodium Potassium Chloride Carbon Dioxide Anion Gap BUN Creatinine Est GFR (CKD-EPI)AfAm Est GFR (CKD-EPI)NonAf Random Glucose Calcium Total Bilirubin AST ALT Alkaline Phosphatase Total Protein Albumin RPR Titer Hep C Ab Diagnostic 0.3 HIV 1&2 Antibody Screen HIV P24 Antigen Labs reviewed Assessment: 02/13/19 16:43 Withdrawal sxs Plan: Continue detox Encouraged PO water intake Patient scheduled for discharge tomorrow
--- NOTE | 2019-02-13 22:30 | DS ---
[facility] Detox Discharge Summary Admission Date: 02/09/19 Discharge Date: 02/13/19 - History Present History: Cannabis Dependence, Cocaine Dependence, Opioid Dependence Additional Comments: DESPITE ATTEMPTS TO ADDRESS PATIENT'S NEEDS / CONCERNS AND DESPITE ENCOURAGEMENT FROM RN AND RN CHRONIC TO REMAIN UNTIL TOMORROW AM TO LEAVE DETOX UNIT, PATIENT INSISTS ON LEAVING DETOX UNIT LATE IN DAY AT UNSAFE TIME AND AGAINST MEDICAL ADVICE. NO APPARENT REASON FOR LEAVING DETOX UNIT AT THIS TIME OFFERED BY PATIENT WHEN ASKED. RISKS OF LEAVING DETOX UNIT AGAINST MEDICAL ADVICE AND PRIOR TO COMPLETION OF DETOX REGIMEN EXPLAINED TO PATIENT. PATIENT ADVISED TO GO IMMEDIATELY TO NEAREST ER SHOULD ANY INTOLERABLE WITHDRAWAL / DETOX SYMPTOMS OCCUR AT ANY TIME. PATIENT VERBALIZED UNDERSTANDING OF RECOMMENDATION. Pertinent Past History: History Of Major Depressive Disorder, History Of Complex Regional Pain Syndrome , Asthma, Anxiety, Nicotine Dependence, History Of Knee Surgery, History of Ankle Surgery, Schizophrenia. - Physical Exam Results Vital Signs: Vital Signs Temperature 97.9 F 02/13/19 13:26 Pulse Rate 76 02/13/19 13:26 Respiratory Rate 18 02/13/19 13:26 Blood Pressure 107/55 L 02/13/19 13:26 O2 Sat by Pulse Oximetry (%) Pertinent Admission Physical Exam Findings: WITHDRAWAL SYMPTOMS. Laboratory Tests 02/10/19 02/10/19 02/10/19 08:10 08:10 08:10 WBC 5.8 RBC 3.71 Hgb 11.1 Hct 33.7 MCV 90.8 MCH 29.8 MCHC 32.8 RDW 14.9 Plt Count 211 D MPV 9.8 D Sodium 142 Potassium 4.1 Chloride 107 Carbon Dioxide 30 Anion Gap 5 L BUN 8.1 Creatinine 0.7 Est GFR (CKD-EPI)AfAm 118.74 Est GFR (CKD-EPI)NonAf 102.45 Random Glucose 86 Calcium 8.6 Total Bilirubin 0.2 AST 7 L ALT 15 Alkaline Phosphatase 54 Total Protein 5.9 L Albumin 3.1 L RPR Titer Nonreactive Hep C Ab Diagnostic HIV 1&2 Antibody Screen Negative HIV P24 Antigen Negative 02/10/19 08:10 WBC RBC Hgb Hct MCV MCH MCHC RDW Plt Count MPV Sodium Potassium Chloride Carbon Dioxide Anion Gap BUN Creatinine Est GFR (CKD-EPI)AfAm Est GFR (CKD-EPI)NonAf Random Glucose Calcium Total Bilirubin AST ALT Alkaline Phosphatase Total Protein Albumin RPR Titer Hep C Ab Diagnostic 0.3 HIV 1&2 Antibody Screen HIV P24 Antigen LABS NOTED. - Medication Discharge Medications: Ambulatory Orders Albuterol Sulfate Inhaler - [Ventolin Hfa Inhaler -] 2 inh PO Q4H PRN 02/09/19 Aripiprazole 10 mg PO HS 02/09/19 Cromolyn Sodium [Crolom] 2 drop OD TID 02/09/19 Sertraline HCl [Zoloft] 100 mg PO DAILY 02/09/19 - Diagnosis (1) Opioid dependence with withdrawal Status: Acute (2) Asthma Status: Chronic Qualifiers: Asthma severity: unspecified severity Asthma persistence: unspecified Asthma complication type: uncomplicated Qualified Code(s): J45.909 - Unspecified asthma, uncomplicated (3) Cannabis dependence Status: Chronic (4) Nicotine dependence Status: Chronic Qualifiers: Nicotine product type: cigarettes Substance use status: uncomplicated Qualified Code(s): F17.210 - Nicotine dependence, cigarettes, uncomplicated (5) Drug-induced psychotic disorder with hallucinations Status: Suspected (6) Substance induced mood disorder Status: Acute (7) Substance-induced sleep disorder Status: Acute (8) Complex regional pain syndrome Status: Chronic (9) Schizophrenia Status: Chronic Qualifiers: Schizophrenia type: unspecified Qualified Code(s): F20.9 - Schizophrenia, unspecified - AMA Did Patient Leave Against Medical Advice: Yes (PATIENT DID NOT WISH TO REMAIN TO COMPLETE DETOX REGIMEN.)
[2019-02-14] MEDS ORDERED: METHADONE HCL 5 MG TABLET (FOR DETOX USE ONLY) PO ONE (06:00)
== END 2019-02-13 17:25 | disposition left against medical advice (07) | DRG 770 ==
LOC: YASAS 13:05 → Y6N 16:22
PROVIDERS: ADMIT Allergy & Immunology; ATTEND Allergy & Immunology
PROC: HZ2ZZZZ Detoxification Services for Substance Abuse Treatment (ICD-10-PCS; principal; 2019-02-09)
DX: F11.23 Opioid dependence with withdrawal (principal); F13.20 Sedative, hypnotic or anxiolytic dependence, uncomplicated; F14.20 Cocaine dependence, uncomplicated; F12.20 Cannabis dependence, uncomplicated; F17.210 Nicotine dependence, cigarettes, uncomplicated; F19.951 Other psychoactive substance use, unspecified with psychoactive substance-induced psychotic disorder with hallucinations; F20.9 Schizophrenia, unspecified; F19.282 Other psychoactive substance dependence with psychoactive substance-induced sleep disorder; F19.24 Other psychoactive substance dependence with psychoactive substance-induced mood disorder; F41.9 Anxiety disorder, unspecified; G90.50 Complex regional pain syndrome I, unspecified; J45.909 Unspecified asthma, uncomplicated; Z96.651 Presence of right artificial knee joint
CPT/HCPCS: 36415; 80053; 85027; 86593; 86803; 87389; J0735